=== PATIENT | male | born 2000 | race Hispanic/Latino ===

== ENCOUNTER 2020-09-01 03:51 | Emergency (ER) | payer MEDICAID, OTHER ==
[2020-09-01] MEDS ORDERED: ONDANSETRON HCL 4 MG/2 ML VIAL ONE (04:19)
[2020-09-01] MEDS ORDERED: METOCLOPRAMIDE 10 MG/2 ML VIAL ONE (04:19)
[2020-09-01] MEDS ORDERED: ACETAMINOPHEN EXTRA STRENGTH 500 MG TABLET ONE (04:19)
[2020-09-01] MEDS ORDERED: ONDANSETRON ODT 4 MG TAB ONE (04:21)
== END 2020-09-01 04:34 | disposition home or self-care (01) ==
LOC: EDH 03:51
DX: R11.0 Nausea (principal)
CPT/HCPCS: 96372; 99283; J2765; J2405